=== PATIENT | female | born 1960 | race Caucasian/White ===

== ENCOUNTER 2017-04-05 14:11 | Emergency (ER) | payer BC ==
--- NOTE | ~2017-04-05 | ER ---
PATIENT'S NAME: EVONNE SCHMITT [facility] AGE: 56 Y [address] ROOM: [place] [address] LOCATION: [facility] ADMIT DATE: 04/05/2017 ER/Outpatient Report DISCHARGE DATE: 04/05/2017 FAMILY PHYSICIAN: Eli Smith MD ATTENDING PHYSICIAN: Payam Monge TIME SEEN: 2120 hours. CHIEF COMPLAINT: Severe left shoulder pain. HISTORY OF PRESENT ILLNESS: The patient is 56-year-old female, who was working in her yard when she tripped and fell on her left shoulder. The patient presents with severe pain in left shoulder. ALLERGIES: PENICILLIN. CURRENT MEDICATIONS: Include, 1. Prozac. 2. Vitamin. MEDICAL HISTORY: Includes chronic anxiety. SURGERIES: She has had cholecystectomy, kidney stone removal. SOCIAL HISTORY: She is . Nonsmoker. Denies alcohol use. REVIEW OF SYSTEMS: GENERAL: General health good. HEAD AND ENT: Denies any head or neck pain. RESPIRATORY/CARDIOVASCULAR: No shortness of breath. No chest pain. MUSCULOSKELETAL: Severe pain left shoulder, inability with loss of motion. NEUROLOGIC: Denies any numbness and tingling to her left arm. PHYSICAL EXAMINATION: VITAL SIGNS: Her blood pressure was 165/76, respiratory rate was 24, pulse 68. GENERAL APPEARANCE: She is alert, but in obvious pain. PATIENT'S NAME: EVONNE SCHMITT [facility] AGE: 56 Y [address] ROOM: [place] [address] LOCATION: [facility] ADMIT DATE: 04/05/2017 ER/Outpatient Report DISCHARGE DATE: 04/05/2017 FAMILY PHYSICIAN: Eli Smith MD ATTENDING PHYSICIAN: Payam Monge EXTREMITIES: She had a good radial pulse. Good sensation to her fingers and hands. She is quite tender over the shoulder. DIAGNOSTIC DATA: X-ray show an anterior dislocation with a fracture to the greater tubercle. ASSESSMENT: 1. Ground level fall. 2. Anterior dislocation, fractured tuberosity of her proximal humerus. PLAN: I talked with Dr. Curry, orthopedic surgeon on-call and his recommendation was Dr. Monge reduce it, shoulder immobilizer, then follow up in the clinic next week. TREATMENT IN THE EMERGENCY ROOM: A saline lock was placed. Initial pain management was with fentanyl 50 mcg, which was repeated x1. The Anesthesia was called and the shoulder reduction was done by Dr. Monge. Post reduction x-ray showed reduction of the shoulder and also of the fractured tubercle. A shoulder immobilizer was applied. The patient will be followed up by Dr. Curry next week. The patient to use ice 10-15 minutes every couple hours tonight. We did give her a prescription for [place] for pain. RICHARD WHEELER FOR PAYAM MONGE, SWJ/modl /[id number] d: 04/05/17 2307 t: 04/11/17 1225, OUTPATIENT REPORT
--- NOTE | ~2017-04-05 | ER ---
PATIENT'S NAME: EVONNE SCHMITT [facility] AGE: 56 Y [address] ROOM: [place] [address] LOCATION: [facility] ADMIT DATE: 04/05/2017 ER/Outpatient Report DISCHARGE DATE: 04/05/2017 FAMILY PHYSICIAN: Eli Smith MD ATTENDING PHYSICIAN: Eddi Monge ADDENDUM: This is an addendum and a procedure note. Please see Don Chau's dictation for chief complaint, history of present illness, past medical history, past surgical history, social history, allergies, medications, review of systems, and physical exam. I did see and evaluate the patient. I have evaluated the patient's x-ray. The patient does have a left shoulder dislocation with a fracture of the greater tubercle of the left shoulder. Don Chau has discussed the case with Dr. Curry, who is on-call for Trauma Orthopedics. He has requested reduction by myself and then a close followup with him over at the Orthopedic Clinic. I have discussed the risks and benefits of sedation as well as the risks and benefits of closed reduction of this left shoulder. The patient does wish to proceed. Signed consent is obtained. [facility] Anesthesia MARRIAGE AND FAMILY THERAPIST, is here to provide procedural sedation, propofol is used for procedural sedation. The patient is appropriate as sedated. The arm is externally rotated with traction and is reduced. The greater tubercle does appear to be in improved alignment as well. The patient remains neurovascularly intact. Postreduction x-ray is ordered and does reveal improvement of reduction. The patient does continue to be neurovascularly intact. I have discussed follow up with Dr. Curry, please see his dictation as well. DISPOSITION: The patient is discharged to home in good condition. DO THANG KHAN/chengl /[id number] d: 04/05/17 2330 t: 04/07/17 1610, OUTPATIENT REPORT
== END 2017-04-05 16:46 | disposition disaster alternative care site (69) ==
LOC: GACC 14:11
PROC: 0PSDXZZ Reposition Left Humeral Head, External Approach (ICD-10-PCS; principal; 2017-04-05)
DX: S42.252A Displaced fracture of greater tuberosity of left humerus, initial encounter for closed fracture (principal); F41.8 Other specified anxiety disorders; Z88.0 Allergy status to penicillin; Z79.899 Other long term (current) drug therapy; Z90.49 Acquired absence of other specified parts of digestive tract; W01.0XXA Fall on same level from slipping, tripping and stumbling without subsequent striking against object, initial encounter; Y92.096 Garden or yard of other non-institutional residence as the place of occurrence of the external cause
CPT/HCPCS: J3010; J7030

== ENCOUNTER → 2017-04-08 | Outpatient (CLI) | payer BC | END | disposition disaster alternative care site (69) | LOC: GRAD 13:09 | DX: S42.92XA Fracture of left shoulder girdle, part unspecified, initial encounter for closed fracture (principal); S42.252D Displaced fracture of greater tuberosity of left humerus, subsequent encounter for fracture with routine healing; E04.9 Nontoxic goiter, unspecified; X58.XXXD Exposure to other specified factors, subsequent encounter ==